=== PATIENT | male | born 1975 | race Caucasian/White ===

== ENCOUNTER 2017-08-13 01:37 | Emergency (ER) | payer MEDICAID ==
[~2017-08-13] VITALS: Ht 177.8 cm; Wt 70.3 kg
[2017-08-13 02:15] VITALS: BP_SYST 114
[2017-08-13] MEDS ORDERED: ELVI1TAB3 PO (02:20)
[2017-08-13] MEDS ORDERED: NACL 0.9% 1,000 ML IV ONE (02:47)
[2017-08-13] MEDS ORDERED: KETOROLAC TROMETHAMINE 30 MG VIAL IVP ONE (03:00)
[2017-08-13] MEDS ORDERED: MORPHINE 2 MG/ML INJ. SYRINGE IVP ONE (03:00)
[2017-08-13] MEDS ORDERED: ONDANSETRON HCL 4 MG/2 ML VIAL IVP ONE (03:00)
[2017-08-13 03:32] LABS: EOSINOPHILS % (AUTO) 1.8 % (0.0-4.0); HEMATOCRIT 35.6 % (36-54); HEMOGLOBIN 11.3 g/dL (14.0-18.0); LYMPHOCYTES # (AUTO) 1.2 K/uL (1.0-5.5); LYMPHOCYTES % (AUTO) 21.8 % (20.5-51.5); MEAN CORPUSCULAR HEMOGLOBIN 24 pg (27-31); MEAN CORPUSCULAR HGB CONC 32 % (32-36); MEAN CORPUSCULAR VOLUME 75 fL (79.0-98.0); MONOCYTES # (AUTO) 0.4 K/uL (0.0-1.0); MONOCYTES % (AUTO) 7.5 % (1.7-9.3); NEUTROPHILS # (AUTO) 3.8 K/uL (1.8-7.7); NEUTROPHILS % (AUTO) 67.9 % (40.0-70.0); PLATELET COUNT (AUTO) 226 K/uL (130-430); RED BLOOD CELL COUNT(AUTO) 4.76 MIL/uL (4.2-6.2); RED CELL DISTRIBUTION WIDTH 16.9 % (9.0-15.0); WHITE BLOOD COUNT (AUTO) 5.6 K/uL (4.8-10.8)
[2017-08-13 03:33] LABS: BASOPHILS # (AUTO) 0.1 K/uL (0.0-0.2); EOSINOPHILS # (AUTO) 0.1 K/uL (0.0-0.4)
[2017-08-13 03:37] LABS: CALCIUM 8.1 mg/dL (8.4-11.0); CREATININE 0.96 mg/dL (0.55-1.30); POTASSIUM 3.3 mmol/L (3.5-5.1)
[2017-08-13 04:30] VITALS: BP_SYST 100
== END 2017-08-13 04:30 | disposition home or self-care (01) ==
LOC: SED 01:37
DX: R19.7 Diarrhea, unspecified (principal)
CPT/HCPCS: 36415; 80048; 85025; 96360; 99284; J7030